=== PATIENT | female | born 1980 | race Two or more races ===

== ENCOUNTER 2023-04-27 07:47 | Emergency (ER) | payer BC, OTHER ==
[~2023-04-27] VITALS: Ht 162.6 cm; Wt 80.4 kg
[2023-04-27 08:22] VITALS: BP 169/109; PULSE 102; RESP 18; TEMP 98.4; O2SAT 97
[2023-04-27] MEDS ORDERED: AZIT500T66 PO (09:08)
[2023-04-27] MEDS ORDERED: PROM1SOL4 PO (09:08)
== END 2023-04-27 09:28 | disposition home or self-care (01) ==
LOC: ER 07:47
DX: J20.9 Acute bronchitis, unspecified (principal)
CPT/HCPCS: 71046